=== PATIENT | male | born 1955 | race Caucasian/White ===

== ENCOUNTER 2025-03-04 13:31 | Outpatient (CLI) | payer MEDICARE ==
[2025-03-04 14:11] LABS: #Basophils 0.06 10x3/uL (0.0-0.2); #Eosinophils 0.08 10x3/uL (0.0-0.5); #Monocytes 0.64 10x3/uL (0.0-1.1); #Neutrophils 4.77 10x3/uL (1.5-8.4); %Basophils 0.9 % (0.0-2.0); %Eosinophils 1.2 % (0.0-6.0); %Lymphocytes 19.3 % (18.0-47.0); %Monocytes 9.3 % (0.0-10.0); %Neutrophils 69.0 % (40.0-75.0); Hematocrit 43.6 % (38.8-50.0); Hemoglobin 15.0 g/dL (13.5-17.5); Mean Corpuscular Hemoglobin 32.6 pg (27.0-33.0); Mean Corpuscular Volume 94.8 fL (81.2-95.1); Platelet Count 241 10x3/uL (150-450); Red Blood Cell (RBC) Count 4.60 10x6/uL (4.32-5.72); White Blood Cell (WBC) Count 6.90 10x3/uL (3.5-10.5)
[2025-03-04 14:35] LABS: Anion Gap 17 mmol/L (10-20); BUN (Urea Nitrogen) 15 mg/dL (8.4-25.7); Calc. Creatinine Clearance 0 mL/min (70-130); Calcium 8.8 mg/dL (7.8-10.44); Carbon Dioxide 21 mmol/L (23-31); Chloride 105 mmol/L (98-107); Glucose 77 mg/dL (80-115); Potassium 4.1 mmol/L (3.5-5.1); Sodium 139 mmol/L (136-145)
== END 2025-03-04 13:32 | disposition home or self-care (01) ==
LOC: CSHLAB 13:31
PROVIDERS: ATTEND Surgery
DX: Z01.818 Encounter for other preprocedural examination (principal); K40.90 Unilateral inguinal hernia, without obstruction or gangrene, not specified as recurrent
CPT/HCPCS: 80048; 85025; 93005; 93010